=== PATIENT | female | born 1995 ===

== ENCOUNTER 2017-06-19 11:04 | Emergency (ER) | payer OTHER ==
[2017-06-19 11:36] VITALS: BP 128/54; PULSE 80; RESP 18; TEMP 97; O2SAT 100
--- NOTE | 2017-06-19 12:21 | ED PDOC ---
HPI: Female Pain Time Seen by Provider: 06/19/17 12:18 Chief Complaint (Nursing): Female Genitourinary Chief Complaint (Provider): Female Genitourinary History Per: Patient History/Exam Limitations: no limitations Onset/Duration Of Symptoms: Days (x2 weeks) Current Symptoms Are (Timing): Still Present Quality Of Discomfort: Burning Associated Symptoms: Back Pain, Urinary Symptoms (dysuria). denies: Nausea, Vomiting Additional Complaint(s): Samantha Cagle is a 21 year old female, with no past medical history, who presents to the emergency department complaining of dysuria and lower back pain onset for x2 weeks. Patient was seen before in the ED for UTI and reports similar symptoms today. She denies any nausea, vomit, or abdominal pain. No further medical complaints. PMD: None provided. Past Medical History Reviewed: Historical Data, Nursing Documentation, Vital Signs Vital Signs: Last Vital Signs Temp 97 F L 06/19/17 11:32 Pulse 80 06/19/17 11:32 Resp 18 06/19/17 11:32 BP 128/54 L 06/19/17 11:32 Pulse Ox 100 06/19/17 11:32 - Medical History PMH: No Chronic Diseases - Surgical History Surgical History: No Surg Hx - Family History Family History: States: Unknown Family Hx - Home Medications Home Medications: Ambulatory Orders Medication Instructions Recorded Cephalexin [Keflex] 500 mg PO QID #20 cap 06/19/17 Phenazopyridine HCl [Pyridium] 100 mg PO BID PRN #6 tablet 06/19/17 - Allergies Allergies/Adverse Reactions: Allergies Allergy/AdvReac Type Severity Reaction Status Date / Time No Known Allergies Allergy Verified 07/09/16 13:52 Review of Systems ROS Statement: Except As Marked, All Systems Reviewed And Found Negative Gastrointestinal: Negative for: Nausea, Vomiting, Abdominal Pain Genitourinary Female: Positive for: Dysuria Musculoskeletal: Positive for: Back Pain (lower) Physical Exam - Reviewed Nursing Documentation Reviewed: Yes Vital Signs Reviewed: Yes - Physical Exam Appears: Positive for: Non-toxic, No Acute Distress Head Exam: Positive for: ATRAUMATIC, NORMAL INSPECTION, NORMOCEPHALIC Skin: Positive for: Normal Color, Warm, Dry Eye Exam: Positive for: Normal appearance Neck: Positive for: Painless ROM, Supple Respiratory: Negative for: Respiratory Distress Gastrointestinal/Abdominal: Positive for: Normal Exam, Soft. Negative for: Tenderness, Guarding, Rebound Back: Positive for: Normal Inspection. Negative for: L CVA Tenderness, R CVA Tenderness, Vertebral Tenderness Extremity: Positive for: Normal ROM. Negative for: Deformity, Swelling Neurologic/Psych: Positive for: Alert, Oriented - ECG O2 Sat by Pulse Oximetry: 100 (RA) Pulse Ox Interpretation: Normal Medical Decision Making Medical Decision Making: Initial Impression: UTI Initial Plan: --Urine dipstick --Urine --Urine culture --Urinalysis --reevaluation ~ Scribe Attestation: Documented by Xiang Johnson, acting as a scribe for Bennie Ridley PA-C. Provider Scribe Attestation: All medical record entries made by the Scribe were at my direction and personally dictated by me. I have reviewed the chart and agree that the record accurately reflects my personal performance of the history, physical exam, medical decision making, and the department course for this patient. I have also personally directed, reviewed, and agree with the discharge instructions and disposition. Disposition - Clinical Impression Clinical Impression: Urinary tract infection - Patient ED Disposition Is Patient to be Admitted: No - Disposition Referrals: [facility] [Outside] Disposition: Routine/Home Disposition Time: 12:55 Condition: FAIR Prescriptions: Cephalexin [Keflex] 500 mg PO QID #20 cap Phenazopyridine HCl [Pyridium] 100 mg PO BID PRN #6 tablet PRN Reason: Urinary Discomt Instructions: Urinary Tract Infection in Women (DC) Forms: [facility] (Amharic) Print Language: EGYPTIAN
[2017-06-19 12:51] LABS: SQUAMOUS EPITHIAL 12 /hpf (0-5); URINE BACTERIA OCC (<OCC); URINE BILIRUBIN NEGATIVE (NEGATIVE); URINE BLOOD NEGATIVE (NEGATIVE); URINE CLARITY CLOUDY (Clear); URINE COLOR YELLOW (YELLOW); URINE GLUCOSE (UA) NEG (Normal); URINE LEUKOCYTE ESTERASE LARGE Leu/uL (Negative); URINE NITRATE NEGATIVE (NEGATIVE); URINE PROTEIN NEGATIVE (NEGATIVE); URINE UROBILINOGEN 0.2-1.0 mg/dL (0.2-1.0)
== END 2017-06-19 12:55 | disposition home or self-care (01) ==
LOC: H.ER 11:04
DX: N39.0 Urinary tract infection, site not specified (principal)